=== PATIENT | male | born 1990 | race African-American/Black ===

== ENCOUNTER 2022-03-04 19:31 | Emergency (ER) | payer SELFPAY ==
[~2022-03-04] VITALS: Ht 188 cm; Wt 73.5 kg
[2022-03-04] MEDS ORDERED: CEFAZOLIN 1000MG PREMIX 50 ML IV ONE (19:45)
[2022-03-04] MEDS ORDERED: TETANUS, DIPHTHERIA, PERTUSSIS VAC/PF 0.5ML (>10YR OLD) IM ONE (19:45)
[2022-03-04] MEDS ORDERED: MORPHINE SULFATE 4 MG/ML CPJ (NOT FOR IM USE) IV ONE (19:45)
[2022-03-04] MEDS ORDERED: SODIUM CHLORIDE 0.9% 1,000 ML IV ONE (19:45)
[2022-03-04] MEDS ORDERED: LIDOCAINE HCL 1% 20ML VIAL (Pyxis) INJ INFIL ONE (20:00)
[2022-03-04 20:12] LABS: HEMATOCRIT. 37.2 % (42.0-52.0); HEMOGLOBIN. 12.3 g/dL (14.0-18.0); MEAN CORPUSCULAR HEMOGLOBIN 28.8 pg (28.0-32.0); MEAN PLATELET VOLUME 7.1 fl (7.4-10.4); PLATELET 363 x1000/uL (130-400); RED BLOOD CELL COUNT 4.27 mill/uL (4.7-6.1)
[2022-03-04 20:25] LABS: PROTHROMBIN TIME 10.4 sec (9.6-11.0)
[2022-03-04 20:39] LABS: PLATELET ESTIMATE NORMAL
[2022-03-04 20:48] LABS: CHLORIDE 103 mEq/L (98-107)
[2022-03-04 20:57] LABS: ETHANOL BLOOD < 10 mg/dL
[2022-03-04] MEDS ORDERED: LIDOCAINE HCL 1% 30ML VIAL (10MG/ML) INFIL ONE (21:00)
[2022-03-04 23:00] VITALS: BP 120/60
[2022-03-04] MEDS ORDERED: CLIN-194 MT (23:11)
[2022-03-04] MEDS ORDERED: BACITRACIN ZINC OINT UDPKT TOP ONE (23:12)
[2022-03-04] MEDS ORDERED: BO1 TP (23:14)
== END 2022-03-04 23:39 | disposition home or self-care (01) ==
LOC: ER 19:31
DX: S51.812A Laceration without foreign body of left forearm, initial encounter (principal); W26.8XXA Contact with other sharp object(s), not elsewhere classified, initial encounter; Y93.39 Activity, other involving climbing, rappelling and jumping off; Y92.89 Other specified places as the place of occurrence of the external cause
CPT/HCPCS: 12002; 36415; 73090; 80053; 80320; 85025; 85610; 86850; 86900; 86901; 90471; 90715; 96365; 96375; 99291; J0690; J2270; J3490; J7030; G0480